=== PATIENT | male | born 1985 | race Two or more races ===

== ENCOUNTER 2016-12-18 06:13 | Day surgery (SDC) | payer OTHER ==
[~2016-12-18] VITALS: Ht 180.3 cm; Wt 81.6 kg
[2016-12-18] MEDS ORDERED: IV SET PRIMARY 1 EA INFUS.SET MC ONE (07:04)
[2016-12-18] MEDS ORDERED: IV LR 1000 ML 1,000 ML ONE (07:04)
[2016-12-18] MEDS ORDERED: CEFAZOLIN SODIUM/DEXTROSE,ISO 50 ML IV ONE (07:04)
[2016-12-18] MEDS ORDERED: SECONDARY IV SET 1 EA INFUS.SET MC ONE (07:04)
[2016-12-18] MEDS ORDERED: NEEDLELESS EST SET LARGE BORE 1 EA INFUS.SET MC ONE (07:04)
[2016-12-18] MEDS ORDERED: FENTANYL PF 250MCG/5ML AMPUL ONE (08:43)
[2016-12-18] MEDS ORDERED: MIDAZOLAM HCL 2 MG/2ML VIAL ONE (08:44)
[2016-12-18] MEDS ORDERED: LIDOCAINE HCL/PF 1% 30 ML SDV ONE (09:16)
[2016-12-18] MEDS ORDERED: HYDROCODONE/APAP 10/325MG 1 EA TABLET ONE (11:25)
== END 2016-12-18 12:30 | disposition home or self-care (01) ==
LOC: DS 06:13
PROVIDERS: ATTEND Specialist
DX: S83.511A Sprain of anterior cruciate ligament of right knee, initial encounter (principal); S83.241A Other tear of medial meniscus, current injury, right knee, initial encounter; S83.281A Other tear of lateral meniscus, current injury, right knee, initial encounter; M22.41 Chondromalacia patellae, right knee; M65.861 Other synovitis and tenosynovitis, right lower leg; X58.XXXA Exposure to other specified factors, initial encounter; Y93.89 Activity, other specified; Y92.89 Other specified places as the place of occurrence of the external cause; Y99.8 Other external cause status
CPT/HCPCS: 29880; 29888; A4217; A6402; J0690; J1100; J2001; J2250; J2405; J2704; J3010; J3490; J7120; 88304-TC; 88305-TC; 88311-TC

== ENCOUNTER 2017-03-26 07:11 | Day surgery (SDC) | payer OTHER ==
[2017-03-26] MEDS ORDERED: CEFAZOLIN SODIUM/DEXTROSE,ISO 50 ML IV ONE (08:29)
[2017-03-26] MEDS ORDERED: LIDOCAINE 0.5% HCL 50 ML VIAL ONE (09:07)
[2017-03-26] MEDS ORDERED: HYDROMORPHONE INJ 2 MG/ML DISP.SYRIN ONE (09:15)
[2017-03-26] MEDS ORDERED: MIDAZOLAM HCL 2 MG/2ML VIAL ONE (09:15)
[2017-03-26] MEDS ORDERED: SEVOFLURANE 250 ML BOTTLE IH ONE (09:30)
[2017-03-26] MEDS ORDERED: METOCLOPRAMIDE HCL 10 MG/2 ML VIAL ONE (09:30)
[2017-03-26] MEDS ORDERED: FENTANYL PF 100MCG/2ML AMPUL ONE (10:36)
== END 2017-03-26 11:55 | disposition home or self-care (01) ==
LOC: DS 07:11
PROVIDERS: ATTEND Specialist
DX: M65.861 Other synovitis and tenosynovitis, right lower leg (principal); M23.41 Loose body in knee, right knee; M23.8X1 Other internal derangements of right knee; Z98.890 Other specified postprocedural states
CPT/HCPCS: 29884; 88304; 88305; 88311; A4217; A6253 ×2; A6402; J0690; J1100; J1170; J2250; J2405; J2704; J2765; J3010; J3490 ×2